=== PATIENT | male | born 1955 | race Caucasian/White ===

== ENCOUNTER 2016-12-16 05:56 | Day surgery (SDC) | payer MEDICARE ==
[2016-12-15 14:26] LABS: HEMATOCRIT 42.7 % (42.0-54.0); HEMOGLOBIN 14.9 g/dL (13.5-17.5); MCH 37.3 pg (26.0-34.0); MCHC 34.9 g/dL (31.0-37.0); MCV 106.8 fL (80.0-100.0); RDW 13.7 % (11.5-14.5); WBC 7.4 10x3/uL (4.8-10.8)
[2016-12-15 14:54] LABS: INR 0.89 (0.85-1.17); PROTIME 11.9 SECONDS (11.6-15.0)
[2016-12-15 14:55] LABS: ALKALINE PHOSPHATASE 163 U/L (46-116); ALT (SGPT) 74 U/L (10-68); APTT 29.4 SECONDS (22.8-39.4); BILIRUBIN - TOTAL 0.48 mg/dL (0.2-1.3); CALC OSMOLALITY 270 mosm/kg (275-300); CALCIUM 9.5 mg/dL (8.5-10.1); CARBON DIOXIDE 25.6 mmol/L (21.0-32.0); CHLORIDE - SERUM 98 mmol/L (98-107); GLUCOSE 79 mg/dL (74-106); POTASSIUM - SERUM 4.2 mmol/L (3.5-5.1); PROTEIN - SERUM 7.5 g/dL (6.4-8.2); SODIUM 136 mmol/L (136-145); UREA NITROGEN 13 mg/dL (7-18); eGFR NON AFRICAN AMERICAN 81 mL/min (90-120)
[~2016-12-16] VITALS: Ht 172.7 cm; Wt 81.6 kg
[~2016-12-16 05:56] MED LIST: ANUSOL-HC25 MG RC; BENADRYL50 MG PO; EFFEXOR XR150 MG PO; HCTZ25 MG PO; METOPROLOL TART50 MG PO; NIFEDIPINE ER30 MG PO; OMEPRAZOLE40 MG PO; OXYCONTIN10 MG PO; XANAX1 MG PO
[2016-12-16 09:54] VITALS: BP 118/74; Ht 172.7 cm; Wt 81.6 kg
[2016-12-16] MEDS ORDERED: HYDROCODONE-APA1 TAB PO (14:33)
--- NOTE | 2016-12-16 19:03 | NUR ---
1545 IV DC WITH CATHER TIP INTACT
--- NOTE | 2016-12-20 09:22 | OP ---
PATIENT NAME: ALEX FISHER MEDICAL RECORD: [id number] :59 [facility] AD[facility] DATE: SURGEON: JIMMIE GAMBLE MD DATE OF OPERATION: 12/16/2016 PREOPERATIVE DIAGNOSES: Impingement syndrome, biceps tendinitis, rotator cuff tear. POSTOPERATIVE DIAGNOSES: Impingement syndrome, biceps tendinitis, rotator cuff tear. PROCEDURES: 1. Arthroscopic rotator cuff repair. 2. Biceps tenodesis. 3. Arthroscopic subacromial decompression, acromioplasty and bursectomy. SURGEON: Jimmie Gamble MD ANESTHESIA: General. INTRAOPERATIVE COMPLICATIONS: None. SUMMARY OF PATHOLOGIC FINDINGS: The patient has severe biceps tendinitis and type 2 acromion a rotator cuff tear over the biceps tendon. OPERATIVE SUMMARY IN DETAIL: After obtaining the appropriate preoperative orthopedic surgery consent as well as anesthetic consultation, evaluation and clearance, the patient was brought to the operating room and placed on the operating room table in supine position. After general laryngeal mask airway was administered, the patient was placed in a right lateral decubitus position. All pressure points were well padded to include down leg peroneal nerve pad as well as axillary roll. The patient was held firmly to the operating table using the vacuum pack suction system. Left upper extremity and shoulder were then prepped and draped in routine sterile fashion. The arm was held in the Arthrex traction boom at 30 degrees of forward flexion, 30 degrees of abduction with 10 pounds of traction laterally. Arthroscopy was established in the glenohumeral joint from a posterior portal. Anterior portal was established in the anterior safe interval. Diagnostic arthroscopy revealed the above findings. The resector was utilized to debride the portions of the labral tearing and detach the biceps tendon that was held in place with a spinal needle. At this point, a small sensory lateral portal was created through which the biceps was taken out. A #2 FiberWire was stitched, then an 8 mm Bio-Tenodesis screw from Arthrex was utilized for proximal biotenodesis of the biceps. Having completed this, the small rotator cuff was repaired using the Bio-Tenodesis screw, FiberWire and a single extra FiberWire resulting in excellent reapproximation of the rotator cuff. Having completed this, under direct arthroscopic visualization, the undersurface of the acromion was denuded of all soft tissue elements using the Mcallen tissue ablation system. A 5-0 barrel bur was then used to perform acromioplasty at the level of acromioclavicular joint. Having completed this, arthroscopy portals and the small sensory lateral incision were closed in routine fashion. Sterile dressings were applied. The patient was awakened, taken to recovery room in stable condition. All final needle and sponge counts were correct. TRANSINT:[id number] Voice Confirmation ID: [id number] DOCUMENT ID: [id number] OPERATIVE REPORT [id number] ALEX FISHER MD, JIMMIE MAY at 0922 CC: [id number] DICTATION DATE: 12/16/16 1450 LACQUER SHADER: 12/17/16 0030 [facility] 12/16/16 [address] [place] [address]
== END 2016-12-16 16:10 | disposition home or self-care (01) ==
LOC: D.OPS 05:56 → D.PAN 10:15 → D.OPS 14:45
PROVIDERS: Anesthesiology
DX: M75.42 Impingement syndrome of left shoulder (principal); M75.112 Incomplete rotator cuff tear or rupture of left shoulder, not specified as traumatic; M75.22 Bicipital tendinitis, left shoulder

== ENCOUNTER 2018-07-27 18:43 | Inpatient (IN) | payer MEDICARE ==
[~2018-07-27] VITALS: Ht 172.7 cm; Wt 86.4 kg
[~2018-07-27 18:43] MED LIST changes: +HYDROCODONE-APA1 TAB PO
[2018-07-27] MEDS ORDERED: EFFEXOR XR75 MG PO (18:52)
[2018-07-27] MEDS ORDERED: HYDROCHLOROTH12.5 M1 PO (18:52)
--- NOTE | 2018-07-27 20:08 | NUR ---
PT AMBULATED TO RESTROOM INDEPENDENTLY.
[2018-07-27 20:39] LABS: BASOPHILS 0.7 % (0-2); EOSINOPHILS 3.7 % (0-7); HEMATOCRIT 37.3 % (42.0-54.0); HEMOGLOBIN 13.3 g/dL (13.5-17.5); IMMATURE GRANULOCYTES 0.2 % (0-5); LYMPHOCYTES 36.8 % (15-50); MCH 35.9 pg (26.0-34.0); MCHC 35.7 g/dL (31.0-37.0); MCV 100.8 fL (80.0-100.0); MEAN PLATELET VOLUME 9.7 fL (7.4-10.4); MONOCYTES 9.9 % (2-11); NEUTROPHILS 48.7 % (40-80); PLATELET COUNT 222 10x3/uL (130-400); RDW 13.1 % (11.5-14.5); WBC 10.5 10x3/uL (4.8-10.8)
[2018-07-27 20:49] LABS: ALBUMIN 3.3 g/dL (3.4-5.0); ALKALINE PHOSPHATASE 98 U/L (46-116); ALT (SGPT) 165 U/L (10-68); BILIRUBIN - TOTAL 0.14 mg/dL (0.2-1.3); CALC OSMOLALITY 264 mosm/kg (275-300); CARBON DIOXIDE 23.3 mmol/L (21.0-32.0); CHLORIDE - SERUM 95 mmol/L (98-107); GLUCOSE 73 mg/dL (74-106); POTASSIUM - SERUM 3.5 mmol/L (3.5-5.1); PROTEIN - SERUM 6.8 g/dL (6.4-8.2); SODIUM 132 mmol/L (136-145); UREA NITROGEN 14 mg/dL (7-18); eGFR NON AFRICAN AMERICAN 81 mL/min (90-120)
[2018-07-27 21:02] LABS: CKMB 1.5 U/L (0.0-3.6); CREATINE KINASE 105 UL (21-232); PRO BNP 496 pg/mL (0-125); TROPONIN-I < 0.017 ng/mL (0.000-0.060)
[2018-07-27 22:30] VITALS: BP 122/81
--- NOTE | 2018-07-27 22:43 | NUR ---
PT GIVEN SANDWICH TO EAT
--- NOTE | 2018-07-28 00:24 | NUR ---
PT GIVEN WARM BLANKETS. DENIES ANY FURTHER NEEDS, AT BEDSIDE. WILL CONTINUE TO MONITOR.
[2018-07-28 01:30] VITALS: BP 131/74
--- NOTE | 2018-07-28 01:46 | NUR ---
PT RESTING, RR EVEN AND UNLABORED, VS WNL, AT BEDSIDE. WILL CONTINUE TO MONITOR.
--- NOTE | 2018-07-28 02:30 | NUR ---
PT'S IV ANTIBIOTIC ZITHROMAX FINISHED.
[2018-07-28 03:00] VITALS: BP 139/74
--- NOTE | 2018-07-28 03:18 | NUR ---
PT GIVEN URINAL
--- NOTE | 2018-07-28 05:12 | NUR ---
PT RESTING RR EVEN AND UNLABORED, VS WNL, AT BEDSIDE. WILL CONTINUE TO MONITOR.
[2018-07-28 06:00] VITALS: BP 145/85
--- NOTE | 2018-07-28 07:00 | NUR ---
HAND-OFF REPORT RECEIVED FROM OFF GOING NURSE RIMA ALCANTARA. PT OBSERVED SITTING IN RECLINER AT BEDSIDE, IV INFUSING WITH NO SIGNS OF INFILTRATON. FAMILY MEMBER AT THE BEDSIDE. PT'S RESPIRATIONS EVEN AND UNLABORED. CALL LIGHT IN REACH. REGULAR DIET BREAKFAST TRAY GIVEN.
--- NOTE | 2018-07-28 08:06 | NUR ---
ALL MEDS AND NURSES NOTES MADE AFTER 0700 ADMINISTERED/DOCUMENTED BY THIS NURSE. CHARTED UNDER NURSE MARICRUZ RN IN ERROR.
[2018-07-28 10:00] VITALS: BP 138/79
--- NOTE | 2018-07-28 10:35 | NUR ---
IV BANANA BAG TEMPORARILLY STOPPED WHILE ORDERED IV ROCEPHIN INFUSING. WILL RESTART ONCE ROCEPHIN IS COMPLETE, 124ML REMAINING OF BANANA BAG.
--- NOTE | 2018-07-28 10:45 | NUR ---
PT SITTING IN RECLINER, RESPIRATIONS EVEN AND UNLABORED. IV INFUSING ORDERED WITH NO SIGNS OF INFILTRATION. O2 VIA NC IN PLACE. FAMILY AT THE BEDSIDE. PT DENIES ANY NEEDS. CALL LIGHT IN REACH. ICE WATER PROVIDED. WILL CONTINUE TO MONITOR.
--- NOTE | 2018-07-28 11:01 | NUR ---
ORDERED IV ROCEPHIN THAT WAS INITIATED AT 1027, COMPLETE AT 1101.
--- NOTE | 2018-07-28 12:10 | MORECARE ---
CASE MANAGEMENT DISCHARGE SUMMARY PATIENT: ALEX FISHER UNIT: [id number] ADM DATE: 07/28/18 AGE: 62 : 59 SEX: M ROOM/BED: D.2214 AUTHOR: ASHLEY,DOC PHYSICIAN: REFERRING PHYSICIAN: LITO HOUSE MD DATE OF SERVICE: 07/28/18 Discharge Plan Patient Name: ALEX FISHER Facility: [facility]:[place] : 1955 Planned Disposition: Anticipated Discharge Date: 07/31/18 Discharge Date: Expected LOS: 3 Initial Reviewer: [email or web address] Initial Review Date: 07/28/2018 Generated: 07/28/18 1:10 pm DCP- Discharge Planning Updated by [email or web address]: Mimi Candelario on 07/28/18 11:[address] Patient Name: ALEX FISHER Admission Status: ER Accout number: [id number] Admission Date: 07-28-2018 : 1955 Admission Diagnosis: Attending: LITO HOUSE Current LOS: 1 Anticipated DC Date: 07-31-2018 Planned Disposition: Primary Insurance: MEDICARE A & B Discharge Planning Comments: CM met with patient to complete initial dc planning assessment. CM educated patient on the CM role and verbal consent given by patient to complete assessment. Patient lives at home independently with his . At discharge patient plans to return home with his and feels this is a safe discharge. CM discussed availability of home health, rehab services, and medical equipment. Patient denied known discharge needs at this time. CM will continue to follow and will assist as needed with dc plans/needs. Title Abstractor: Mimi Candelario RN, [facility] DCPIA - Discharge Planning Initial Assessment Updated by [email or web address]: Mimi Candelario on 07/28/18 12:04 pm * Is the patient Alert and Oriented? Yes * How many steps to enter\exit or inside your home? none * PCP Dr. Bennett in [place] * Pharmacy [facility] in [place] or on [address] if called in at time of dc. * Preadmission Environment Home with Family * ADLs Independent * Equipment Bedside Commode Cane Oxygen * List name and contact numbers for known caregivers / representatives who currently or will assist patient after discharge: Radha Fisher - - [phone] Julienne Escobar - daughter - [phone] * Verbal permission to speak to the caregivers and representatives has been obtained from the patient. Yes * Community resources currently utilized None * Additional services required to return to the preadmission environment? No * Can the patient safely return to the preadmission environment? Yes * Has this patient been hospitalized within the prior 30 days at any hospital? No Patient Name: ALEX FISHER Page [phone] at 1210 All edits/amendments must be made on the electronic document DICTATION DATE: 07/28/18 1210 SEAFOOD CLERK: YOVANI 07/28/18 1210 RPT#: [id number] DC DATE: STATUS: ADM IN [address] [place] [address] END OF REPORT
--- NOTE | 2018-07-28 12:25 | NUR ---
TO ROOM 2214 FROM ER VIA WHEELCHAIR.ASSESSMENT PER FLOW SHEET. ORIENTATION TO ROOM.CALL LIGHT IN REACH.
[2018-07-28 12:50] VITALS: BP 151/93; BMI 28.9
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
--- NOTE | 2018-07-28 15:15 | NUR ---
URINE COLLECTED ORDERED,TO LAB
[2018-07-28 15:52] LABS: APPEARANCE CLEAR (CLEAR); BILIRUBIN NEGATIVE (NEGATIVE); COLOR YELLOW (YELLOW); GLUCOSE NEGATIVE (NEGATIVE); KETONE NEGATIVE (NEGATIVE); NITRITE NEGATIVE (NEGATIVE); PROTEIN NEGATIVE (NEGATIVE); SPECIFIC GRAVITY 1.015 (1.005-1.020); UROBILINOGEN NORMAL (NORMAL)
[2018-07-28 20:00] VITALS: BP 133/71
[2018-07-29] VITALS (7 sets, daily range): BP systolic 144–175; BP diastolic 76–102
[2018-07-29 06:27] LABS: BASOPHILS 0.2 % (0-2); EOSINOPHILS 0.7 % (0-7); HEMATOCRIT 34.2 % (42.0-54.0); HEMOGLOBIN 11.7 g/dL (13.5-17.5); IMMATURE GRANULOCYTES 0.2 % (0-5); LYMPHOCYTES 22.9 % (15-50); MCHC 34.2 g/dL (31.0-37.0); MCV 102.4 fL (80.0-100.0); MEAN PLATELET VOLUME 10.2 fL (7.4-10.4); MONOCYTES 10.3 % (2-11); NEUTROPHILS 65.7 % (40-80); PLATELET COUNT 198 10x3/uL (130-400); RBC 3.34 10x6/uL (4.20-6.10); RDW 13.6 % (11.5-14.5); WBC 10.5 10x3/uL (4.8-10.8)
--- NOTE | 2018-07-29 06:40 | NUR ---
PT IN BED RESTING QUIETLY WITH EYES CLOSED. VITAL SIGNS STABLE AND AFEBRILE. NO VISUAL CUES OF DISTRESS NOTED. WILL CONTINUE TO MONITOR.
[2018-07-29 06:43] LABS: CALC OSMOLALITY 279 mosm/kg (275-300); CALCIUM 7.9 mg/dL (8.5-10.1); CARBON DIOXIDE 27.7 mmol/L (21.0-32.0); CHLORIDE - SERUM 103 mmol/L (98-107); CREATININE - SERUM 0.8 mg/dL (0.6-1.3); GLUCOSE 95 mg/dL (74-106); POTASSIUM - SERUM 3.7 mmol/L (3.5-5.1); SODIUM 140 mmol/L (136-145); UREA NITROGEN 16 mg/dL (7-18); eGFR NON AFRICAN AMERICAN > 90 mL/min (90-120)
--- NOTE | 2018-07-29 08:00 | NUR ---
ASSESSMENT PER FLOW SHEET. PT IS WITHOUT DISTRESS,BUT HAS ANXIETY THIS AM. IS AT BEDSIDE.CALL LIGHT IN REACH
--- NOTE | 2018-07-29 11:48 | NUR ---
PT STATES NOT ALLRGIC TO MILK OR MILK PRODUCTS
[2018-07-30] VITALS: BP 153/91
[2018-07-30 04:00] VITALS: BP 151/81
[2018-07-30 05:54] LABS: BASOPHILS 0 % (0-2); EOSINOPHILS 0 % (0-7); HEMATOCRIT 35.5 % (42.0-54.0); HEMOGLOBIN 11.8 g/dL (13.5-17.5); IMMATURE GRANULOCYTES 0.3 % (0-5); LYMPHOCYTES 7.4 % (15-50); MCHC 33.2 g/dL (31.0-37.0); MEAN PLATELET VOLUME 10.5 fL (7.4-10.4); MONOCYTES 5.2 % (2-11); NEUTROPHILS 87.1 % (40-80); PLATELET COUNT 193 10x3/uL (130-400); RBC 3.37 10x6/uL (4.20-6.10); RDW 13.7 % (11.5-14.5)
[2018-07-30 06:08] LABS: CALCIUM 8.2 mg/dL (8.5-10.1); CARBON DIOXIDE 26.6 mmol/L (21.0-32.0); CHLORIDE - SERUM 100 mmol/L (98-107); CREATININE - SERUM 0.9 mg/dL (0.6-1.3); SODIUM 136 mmol/L (136-145); UREA NITROGEN 18 mg/dL (7-18); eGFR NON AFRICAN AMERICAN > 90 mL/min (90-120)
[2018-07-30 06:10] LABS: MCV 105.3 fL (80.0-100.0); WBC 6.9 10x3/uL (4.8-10.8)
[2018-07-30 06:21] LABS: CALC OSMOLALITY 277 mosm/kg (275-300); GLUCOSE 170 mg/dL (74-106); POTASSIUM - SERUM 4.3 mmol/L (3.5-5.1)
--- NOTE | 2018-07-30 08:00 | NUR ---
ASSESSMENT PER FLOW SHEET. PT IS WITHOUT DISTRESS.MONITOR FOR NEEDS
[2018-07-30 08:56] VITALS: BP 142/65
--- NOTE | 2018-07-30 13:40 | NUR ---
CALL TO FOR POSS SURG CONSULT FOR POSS CVL. UNABLE TO OBTAIN IV PLACEMENT
[2018-07-30 13:58] VITALS: Ht 172.7 cm; Wt 86.4 kg
[2018-07-30 20:00] VITALS: BP 164/69
--- NOTE | 2018-07-30 20:00 | NUR ---
ALERT CONFUSED AND AGITATED STATES WE HAVE LOCKED HIM UP AND HIS IS TRYING TO HAVE HIM COMMITED WANTING TO LEAVE. AT BEDSIDE. TREMORS NOTED TO HANDS STATES HE HAS NOT DONE THAT BEFORE. APPEARS TO BE GOING THROUGHT DT'S , LIBRIUM GIVEN ORDERED
--- NOTE | 2018-07-30 21:15 | NUR ---
DR CASTILLO NOTIFIED OF PT AGITATION AND CONFUSION NOW AMBULATING IN [place] WANTING TO GO OUTSIDE ORDERS RECIEVED
--- NOTE | 2018-07-30 23:00 | NUR ---
ATIVAN GIVEN ORDERED PT NOW MUCH CALMER AND MORE ORIENTIATED HANDS NO LONGER WITH TREMORS ALERT SITTING UP IN BED EATING SNACK REMAINING AT BEDSIDE
[2018-07-31 00:02] VITALS: BP 166/79
[2018-07-31 09:18] VITALS: BP 154/83
--- NOTE | 2018-07-31 09:35 | NUR ---
RN ASSESSMETN COMPLETE. PT LYING IN BED. NO SIGNS OF DISTRESS. DENIES NEEDS AT THIS TIME.
--- NOTE | 2018-07-31 11:13 | NUR ---
PT WAS ADVISED CAN HAVE BEER WITH EACH MEAL AND WAS TOLD THAT SPOUSE MAY BRING BEER FROM HOME, ADVISED PT PROTOCOL IS THAT WE CAN GET BEER FROM DIETARY BUT PT INSISTED ON OWN BEER ADVISED WE WILL KEEP IN [place] AND GIVE HIM ONE WITH EACH MEAL. BED IN LOW POSITION CL IN REACH FAMILY AT BEDSIDE, PT INQUIRED ON PAIN MEDS ADVISED GIVEN AT 810 AND NEXT DOSE DUE AT 12 AND ORDERED Q12. CONTINUE WITH PLAN OF CARE
--- NOTE | 2018-07-31 12:32 | NUR ---
PT REQUESTED PAIN MEDICATION, ADMINISTERED PRN PAIN MEDS PT CAN HAVE Q12
[2018-07-31 16:29] VITALS: BP 171/82
--- NOTE | 2018-07-31 16:58 | NUR ---
PT UP ADLIB WALKING AROUND NURSING STATION WITH SPOUSE, NO NEEDS VOICED AT THIS TIME, CONTINUE WITH PLAN OF CARE
[2018-07-31 20:00] VITALS: BP 164/84
--- NOTE | 2018-07-31 20:00 | NUR ---
ASSESSMENT PER FLOWSHEET. IV PATENT LEFT CHEST SUBCLAVIAN SALINE LOCKED. AT BEDSIDE. PATIENT UP0 AD MIKHAIL IN ROOM AND HALLWAY.
--- NOTE | 2018-07-31 21:07 | NUR ---
C/O COUGHING ROBITUSSIN 10 ML PO GIVEN FOR COUGH.
--- NOTE | 2018-08-01 00:19 | NUR ---
REQUESTING PAIN MED FOR BACK PAIN OXYCONTIN 10MG PO GIVEN FOR OAIN CONTROL.
--- NOTE | 2018-08-01 01:00 | NUR ---
REQUESTING COUGH MED. ROBITUSSIN 10 ML GIVEN PO FOR COUGH.
--- NOTE | 2018-08-01 01:09 | NUR ---
PATIENT VERY AGGITATED AND SCRATCHING ARMS ATIVAN 1MG IV GIVEN FOR AGGITATION/ANXIETY.
--- NOTE | 2018-08-01 03:59 | NUR ---
EYES CLOSED RESPIRATIONS WITH EASE AND UNLABORED. REFUSED UPDRAFT TX. O2 ON 2L/M PER NC
[2018-08-01 04:00] VITALS: BP 160/92
--- NOTE | 2018-08-01 07:30 | NUR ---
PT SPOUSE INQUIRED ON BARIUM SWALLOW, STATED SPEECH THERAPY STATED POSSIBLE SWALLOW STUDY OR XRAY. NO OTHER NEEDS VOICED, CONTINUE WITH PLAN OF CARE
--- NOTE | 2018-08-01 07:44 | NUR ---
PATIENT SITTING UP IN BED WITH NO COMPLAINTS OR SIGNS OF DISTRESS. THERAPEUTIC RECREATION SPECIALIST AT BEDSIDE DOING VS. IV INTACT. CALL LIGHT WITHIN REACH.
--- NOTE | 2018-08-01 07:57 | NUR ---
PT STATED THAT HIS PAIN MEDICATION Q12 IS NOT GOING TO WORK HIS PAIN IS TOO BAD TO ONLY TAKE EVERY 12 HOURS HE WAS TAKING NORCO Q4 AND THAT WORKS BETTER ADVISED PT TO SPEAK WITH DOCTOR IN REGARDS TO PAIN CONTROL CONCERNS THIS SUKUMAR
[2018-08-01 08:28] VITALS: BP 144/79
--- NOTE | 2018-08-01 11:30 | NUR ---
PT IS VERY ANXIOUS AND WANTED PAIN MEDICINE, ADVISED STILL HAD 30 MINUTES, PT WAS SHAKING AND PACING, ADMINISTERED PRN MEDICATION FOR PT ANXIETY AND GAVE PT A BEER THAT IS ORDERED NEEDED, SPOUSE AT BEDSIDE UNABLE TO CALM PT WELL, CL IN REACH WILL CONTINUE WITH PLAN OF CARE
[2018-08-01 11:55] VITALS: BP 157/90
[2018-08-01 16:58] VITALS: BP 157/85
[2018-08-01 20:00] VITALS: BP 167/78
--- NOTE | 2018-08-01 20:00 | NUR ---
PT SITTING UP IN BED, NO SIGNS OF DISTRESS. ALERT AND ORIENTED. PT HAD JUST GOT OUT OF SHOWER. CHANGED LEFT SUBCLAVIAN CL DRESSING. PT GIVEN COUGH SYRUP FOR COUGH AND SCHEDULED LIBRIUM. NO OTHER NEEDS OR COMPLAINTS AT THIS TIME. CL IN REACH, WILL CONTINUE TO MONITOR
[2018-08-02] VITALS: BP 145/76
--- NOTE | 2018-08-02 | NUR ---
PT STATES PAIN 02/17. GAVE OXY ORDERED. PT STARTING TO GET ANXIOUS, GAVE PRN ATIVAN. GAVE COUGH SYRUP FOR COUGH. LEFT SUBCLAVIAN CL INFUSING BANANA BAG @ 125. 02 2L/NC. NO OTHER NEEDS OR COMPLAINTS AT THIS TIME. CL IN REACH, WILL CONTINUE TO MONITOR
[2018-08-02 04:00] VITALS: BP 161/98
[2018-08-02] MEDS ORDERED: ZITHROMAX250 MG PO (07:36)
[2018-08-02] MEDS ORDERED: MUCINEX DM ER1 EAC1 PO (07:37)
[2018-08-02] MEDS ORDERED: IPRAT-ALBUT 0.5-3 ML UPD (07:41)
--- NOTE | 2018-08-02 08:44 | NUR ---
PT CONTIUES TO BE NONCOMPLIANT AND LEAVES THE FLOOR AFTER EDUCATION GIVEN NOT TO LEAVE AND SMOKE. AT BEDISDE. "OVERWHELMED". NO S/S OF ACUTE DISTRESS.
[2018-08-02 10:04] VITALS: BP 162/88
--- NOTE | 2018-08-02 10:12 | MORECARE ---
CASE MANAGEMENT DISCHARGE SUMMARY PATIENT: ALEX LIRA UNIT: [id number] ADM DATE: 07/28/18 AGE: 62 : 59 SEX: M ROOM/BED: D.2214 AUTHOR: FRANCIA RAMIREZ PHYSICIAN: REFERRING PHYSICIAN: LITO HOUSE MD DATE OF SERVICE: 08/02/18 Discharge Plan Patient Name: ALEX LIRA Facility: [facility]:[place] : 1955 Planned Disposition: Anticipated Discharge Date: 07/31/18 Discharge Date: Expected LOS: 3 Initial Reviewer: [email or web address] Initial Review Date: 07/28/2018 Generated: 08/02/18 11:12 am Comments DCP- Discharge Planning Updated by [email or web address]: Fior Bernstein on 08/02/18 9:[address] Patient discharging home today, has all dme (home o2, portable o2, nebulizer) does not want home health. to drive home. imm served and explained CM to follow and assist with DC planning as needed DCP- Discharge Planning Updated by [email or web address]: Mimi Candelario on 07/28/18 11:[address] Patient Name: ALEX LIRA Admission Status: ER Accout number: [id number] Admission Date: 07-28-2018 : 1955 Admission Diagnosis: Attending: LITO HOUSE Current LOS: 1 Anticipated DC Date: 07-31-2018 Planned Disposition: Primary Insurance: MEDICARE A & B Discharge Planning Comments: CM met with patient to complete initial dc planning assessment. CM educated patient on the CM role and verbal consent given by patient to complete assessment. Patient lives at home independently with his . At discharge patient plans to return home with his and feels this is a safe discharge. CM discussed availability of home health, rehab services, and medical equipment. Patient denied known discharge needs at this time. CM will continue to follow and will assist as needed with dc plans/needs. Diesel Crane Operator: Mimi Candelario RN, [facility] DCPIA - Discharge Planning Initial Assessment Updated by [email or web address]: Mimi Candelario on 07/28/18 12:04 pm * Is the patient Alert and Oriented? Yes * How many steps to enter\exit or inside your home? none * PCP Dr. Bennett in [place] * Pharmacy [facility] in [place] or on [address] if called in at time of dc. * Preadmission Environment Home with Family * ADLs Independent * Equipment Bedside Commode Cane Oxygen * List name and contact numbers for known caregivers / representatives who currently or will assist patient after discharge: Radha Lira - - [phone] Julienne Escobar - daughter - [phone] * Verbal permission to speak to the caregivers and representatives has been obtained from the patient. Yes * Community resources currently utilized None * Additional services required to return to the preadmission environment? No * Can the patient safely return to the preadmission environment? Yes * Has this patient been hospitalized within the prior 30 days at any hospital? No Coverage Notice Reviewer: [email or web address] Rafael Bernstein Notice Issued Date-Time: 08/02/2018 9:30 Notice Type: IM Discharge Notice Notice Delivered To: Patient Relationship to Patient: Spring Upholsterer Name: Delivery Method: HAND - Hand Delivered Ashley Days: Prior Verbal Notification: Recipient Understood Notice: Yes Recipient Signature: Yes Med Rec Note Co-signed by Attending: Coverage Notice Comment: Last DP export: 07/28/18 11:10 a Patient Name: ALEX LIRA Page [phone] at 1012 All edits/amendments must be made on the electronic document DICTATION DATE: 08/02/18 1012 SCAGLIOLA MECHANIC: YOVANI 08/02/18 1012 RPT#: [id number] DC DATE: STATUS: ADM IN [facility] [address] [place] [address] END OF REPORT
--- NOTE | 2018-08-02 10:54 | NUR ---
REMOVED CENTRAL LINE WITH TIP INTACT. NO REDDNESS OR SWELLING NOTED. 4X4S PLACED OVER. PRESSURE HELD FOR 5 MINUTES. NO S/S OF ACUTE DISTRESS. DC INSTRUCTIONS AND EDUCATION GIVEN TO PT AND . ALL BELONGINGS SENT WITH PT.
--- NOTE | 2018-08-02 11:14 | NUR ---
PT DRANK 1 BEER THIS AM WITH BREAKFAST. SENT PT HOME WITH 9 BEER. COUNTED WITH THE PT. PT ESCORTED OFF THE FLOOR VIA WC. AT SIDE. NO S/S OF ACUTE DISTRESS.
[2018-08-03 03:10] LABS: IMMUNOGLOBULIN E 1040 IU/mL (0-100)
--- NOTE | 2018-08-04 11:47 | MORECARE ---
CASE MANAGEMENT DISCHARGE SUMMARY PATIENT: ALEX LIRA UNIT: [id number] ADM DATE: 07/28/18 AGE: 62 : 59 SEX: M ROOM/BED: D.2214 AUTHOR: FRANCIA RAMIREZ PHYSICIAN: REFERRING PHYSICIAN: LITO HOUSE MD DATE OF SERVICE: 08/04/18 Discharge Plan Patient Name: ALEX LIRA Facility: [facility]:[place] : 1955 Planned Disposition: Anticipated Discharge Date: 07/31/18 Discharge Date: 08/02/2018 Expected LOS: 3 Initial Reviewer: [email or web address] Initial Review Date: 07/28/2018 Generated: 08/04/18 12:47 pm Comments DCP- Discharge Planning Updated by [email or web address]: Fior Bernstein on 08/02/18 9:[address] Patient discharging home today, has all dme (home o2, portable o2, nebulizer) does not want home health. to drive home. imm served and explained CM to follow and assist with DC planning as needed DCP- Discharge Planning Updated by [email or web address]: Mimi Candelario on 07/28/18 11:[address] Patient Name: ALEX LIRA Admission Status: ER Accout number: [id number] Admission Date: 07-28-2018 : 1955 Admission Diagnosis: Attending: LITO HOUSE Current LOS: 1 Anticipated DC Date: 07-31-2018 Planned Disposition: Primary Insurance: MEDICARE A & B Discharge Planning Comments: CM met with patient to complete initial dc planning assessment. CM educated patient on the CM role and verbal consent given by patient to complete assessment. Patient lives at home independently with his . At discharge patient plans to return home with his and feels this is a safe discharge. CM discussed availability of home health, rehab services, and medical equipment. Patient denied known discharge needs at this time. CM will continue to follow and will assist as needed with dc plans/needs. Lie Detector Operator: Mimi Candelario RN, [facility] DCPIA - Discharge Planning Initial Assessment Updated by [id number]: Mimi Candelario on 07/28/18 12:04 pm * Is the patient Alert and Oriented? Yes * How many steps to enter\exit or inside your home? none * PCP Dr. Bennett in [place] * Pharmacy [facility] in [place] or on [address] if called in at time of dc. * Preadmission Environment Home with Family * ADLs Independent * Equipment Bedside Commode Cane Oxygen * List name and contact numbers for known caregivers / representatives who currently or will assist patient after discharge: Radha Lira - - [phone] Julienne Escobar - daughter - [phone] * Verbal permission to speak to the caregivers and representatives has been obtained from the patient. Yes * Community resources currently utilized None * Additional services required to return to the preadmission environment? No * Can the patient safely return to the preadmission environment? Yes * Has this patient been hospitalized within the prior 30 days at any hospital? No Coverage Notice Reviewer: [email or web address] Rafael Bernstein Notice Issued Date-Time: 08/02/2018 9:30 Notice Type: IM Discharge Notice Notice Delivered To: Patient Relationship to Patient: Logging Crew Foreman Name: Delivery Method: HAND - Hand Delivered Ashley Days: Prior Verbal Notification: Recipient Understood Notice: Yes Recipient Signature: Yes Med Rec Note Co-signed by Attending: Coverage Notice Comment: Last DP export: 08/02/18 9:12 a Patient Name: ALEX LIRA Page 10458 at 1147 All edits/amendments must be made on the electronic document DICTATION DATE: 08/04/18 1147 WAREHOUSE SUPERVISOR 3RD SHIFT: YOVANI 08/04/18 1147 RPT#: [id number] DC DATE:08/02/18 STATUS: DIS IN [facility] [address] [place] [address] END OF REPORT
== END 2018-08-02 11:59 | disposition home or self-care (01) | DRG 193 ==
LOC: D.ER 18:43 → D.EDHOLD 07-28 00:19 → D.MS 07-28 00:19
PROVIDERS: Family Medicine; Internal Medicine Pulmonary Disease; ADMIT Family Medicine
DX: J18.9 Pneumonia, unspecified organism (principal); J96.01 Acute respiratory failure with hypoxia; J44.0 Chronic obstructive pulmonary disease with (acute) lower respiratory infection; J44.1 Chronic obstructive pulmonary disease with (acute) exacerbation; I48.0 Paroxysmal atrial fibrillation; K21.9 Gastro-esophageal reflux disease without esophagitis; I10 Essential (primary) hypertension; K70.30 Alcoholic cirrhosis of liver without ascites

== ENCOUNTER 2018-08-21 12:10 | Emergency (ER) | payer MEDICARE ==
[~2018-08-21] VITALS: Ht 172.7 cm; Wt 72.7 kg
[~2018-08-21 12:10] MED LIST changes: +EFFEXOR XR75 MG PO; +HYDROCHLOROTH12.5 M1 PO; +IPRAT-ALBUT 0.5-3 ML UPD; +MUCINEX DM ER1 EAC1 PO; +ZITHROMAX250 MG PO
[2018-08-21 12:33] VITALS: Ht 172.7 cm; Wt 72.7 kg
[2018-08-21 13:04] VITALS: BP 132/80
== END 2018-08-21 13:06 | disposition left against medical advice (07) ==
LOC: D.ER 12:10
DX: J44.9 Chronic obstructive pulmonary disease, unspecified (principal); F10.10 Alcohol abuse, uncomplicated

== ENCOUNTER 2018-08-21 13:54 | Emergency (ER) | payer MEDICARE ==
[~2018-08-21] VITALS: Ht 172.7 cm; Wt 86.4 kg
[2018-08-21 13:56] VITALS: BP 142/102; Ht 172.7 cm; Wt 86.4 kg
[2018-08-21 14:55] LABS: BASOPHILS 0.6 % (0-2); EOSINOPHILS 2.6 % (0-7); HEMATOCRIT 37.2 % (42.0-54.0); HEMOGLOBIN 14.1 g/dL (13.5-17.5); IMMATURE GRANULOCYTES 0.9 % (0-5); LYMPHOCYTES 37.4 % (15-50); MCH 35.3 pg (26.0-34.0); MCHC 37.9 g/dL (31.0-37.0); MEAN PLATELET VOLUME 10.1 fL (7.4-10.4); MONOCYTES 9.4 % (2-11); NEUTROPHILS 49.1 % (40-80); RDW 12.7 % (11.5-14.5); WBC 6.9 10x3/uL (4.8-10.8)
[2018-08-21 14:59] LABS: PLATELET COUNT 87 10x3/uL (130-400)
[2018-08-21 15:10] LABS: ALBUMIN 3.6 g/dL (3.4-5.0); ALKALINE PHOSPHATASE 97 U/L (46-116); ALT (SGPT) 37 U/L (10-68); BILIRUBIN - TOTAL 0.38 mg/dL (0.2-1.3); CARBON DIOXIDE 21.7 mmol/L (21.0-32.0); CKMB 2.2 U/L (0.0-3.6); CREATININE - SERUM 0.6 mg/dL (0.6-1.3); PROTEIN - SERUM 6.8 g/dL (6.4-8.2); UREA NITROGEN 6 mg/dL (7-18); eGFR NON AFRICAN AMERICAN > 90 mL/min (90-120)
[2018-08-21 15:25] LABS: CREATINE KINASE 151 UL (21-232)
[2018-08-21 15:27] LABS: CALC OSMOLALITY 243 mosm/kg (275-300); GLUCOSE 92 mg/dL (74-106); POTASSIUM - SERUM 3.1 mmol/L (3.5-5.1); SODIUM 122 mmol/L (136-145); TROPONIN-I < 0.017 ng/mL (0.000-0.060)
[2018-08-21 15:33] LABS: CHLORIDE - SERUM 82 mmol/L (98-107)
[2018-08-21 16:11] LABS: PLATELET ESTIMATE DECREASED
== END 2018-08-21 15:48 | disposition left against medical advice (07) ==
LOC: D.ER 13:54
PROVIDERS: Family Medicine
DX: J44.1 Chronic obstructive pulmonary disease with (acute) exacerbation (principal); F10.10 Alcohol abuse, uncomplicated; E87.1 Hypo-osmolality and hyponatremia; I10 Essential (primary) hypertension; F17.200 Nicotine dependence, unspecified, uncomplicated

== ENCOUNTER → 2018-10-25 10:58 | Outpatient (CLI) | payer MEDICARE ==
[2018-08-21 13:56] VITALS: BMI 28.9
[2018-10-25 12:53] LABS: BASOPHILS 0.1 % (0-2); EOSINOPHILS 0 % (0-7); HEMATOCRIT 36.8 % (42.0-54.0); HEMOGLOBIN 13.9 g/dL (13.5-17.5); IMMATURE GRANULOCYTES 0.4 % (0-5); LYMPHOCYTES 15.3 % (15-50); MCH 35.8 pg (26.0-34.0); MCHC 37.8 g/dL (31.0-37.0); MCV 94.8 fL (80.0-100.0); MONOCYTES 10.3 % (2-11); NEUTROPHILS 73.9 % (40-80); RBC 3.88 10x6/uL (4.20-6.10); RDW 12.7 % (11.5-14.5); WBC 7.8 10x3/uL (4.8-10.8)
[2018-10-25 12:54] LABS: PLATELET COUNT 190 10x3/uL (130-400)
[2018-10-25 13:36] LABS: ALBUMIN 3.8 g/dL (3.4-5.0); ALKALINE PHOSPHATASE 152 U/L (46-116); ALT (SGPT) 148 U/L (10-68); BILIRUBIN - TOTAL 0.25 mg/dL (0.2-1.3); CALC OSMOLALITY 259 mosm/kg (275-300); CALCIUM 9.3 mg/dL (8.5-10.1); CARBON DIOXIDE 24.3 mmol/L (21.0-32.0); CHLORIDE - SERUM 90 mmol/L (98-107); CHOL - HDL RATIO 2.6 ratio (2.3-4.9); CHOLESTEROL, TOTAL 167 mg/dL (0-200); CREATININE - SERUM 0.7 mg/dL (0.6-1.3); GLUCOSE 106 mg/dL (74-106); HDL CHOLESTEROL 64 mg/dL (32-96); LDL CHOLESTEROL 94 mg/dL (0-100); LDL-HDL RATIO 1.5 ratio (1.5-3.5); PROTEIN - SERUM 7.7 g/dL (6.4-8.2); SODIUM 130 mmol/L (136-145); THYROID STIMULATING HORMONE 0.61 uIU/mL (0.36-3.74); TRIGLYCERIDE 46 mg/dL (30-200); UREA NITROGEN 10 mg/dL (7-18); eGFR NON AFRICAN AMERICAN > 90 mL/min (90-120)
== END | disposition home or self-care (01) ==
LOC: D.LAB 10:58
PROVIDERS: ATTEND General Practice
DX: Z12.5 Encounter for screening for malignant neoplasm of prostate (principal)

== ENCOUNTER → 2018-11-23 09:22 | Outpatient (CLI) | payer MEDICARE ==
[2018-08-21 13:56] VITALS: BMI 28.9
== END | disposition home or self-care (01) ==
LOC: D.HCCARDIO 09:22
PROVIDERS: ATTEND Internal Medicine Interventional Cardiology
DX: I20.9 Angina pectoris, unspecified (principal)

== ENCOUNTER 2018-12-05 11:10 | Outpatient (CLI) | payer MEDICARE ==
--- NOTE | ~2018-12-05 | HEMODYNAMI ---
PATIENT:ALEX FISHER MEDICAL RECORD: [id number] : 59 LOCATION:[facility] ADMISSION DATE: 12/05/18 Generatedon:12/05/201813:28 Patient name: ALEX FISHER Patient #: [id number] SSN: D OB: 1955 Date of study: 12/05/2018 Page: Of Hemodynamic Procedure Report Patient Data Patient Demographics Procedure consent was obtained First Name: ALEX Gender: Male Last Name: PHILLIP : 1955 Middle Initial: A Age: 63 year(s) Patient #: [id number] Race: Unknown Additional ID: [id number] Contact details [address]: [address] [place] [address] State: [place] City: [place] Zip code: [address] Past Medical History Allergies Allergen Reaction Date Comments Reported Other allergy 12/05/2018 ambien, cinnamon, red dye Admission Admission Data Admission Date: 12/05/2018 Admission Time: 11:10 Admit Source: Other Procedure Procedure Types Cath Procedure Diagnostic Procedure LHC LHC w/Coronaries Procedure Description Procedure Date Procedure Date: 12/05/2018 Procedure Start Time: 13:10 Procedure End Time: 13:25 Procedure Staff Name Function Keaton Kim MD Performing Physician Leida Khan RT Monitor William Corbett RT Scrub Danay Pond RN Nurse Procedure Data Cath Procedure Fluoroscopy Diagnostic fluoroscopy Total fluoroscopy Time: 1 time: 1 min min Diagnostic fluoroscopy Total fluoroscopy dose: 237 dose: 237 mGy mGy Contrast Material Contrast Material Type Amount (ml) Isovue 370 54 Entry Location Entry Primary Successful Side Size Upsize Upsize Entry Closure Succes sful Closure Location (Fr) 1 (Fr) 2 (Fr) Remarks Device Remarks Femoral Right 5 Fr Exoseal artery Femoral Right 5 Fr vein Estimated blood loss: 5 ml Diagnostic catheters Device Type Used For End Catheter Placement MULTIPACK JL 4.0 5Fr Left Coronary catheter Angiography MULTIPACK 3DRC 5Fr Right Coronary catheter Angiography MULTIPACK Pigtail 5 Fr LV Angiography catheter Procedure Complications No complications Procedure Medications Medication Administration Route Dosage 0.9% NaCl I.V. 100 ml/hr Oxygen etCO2 Nasal cannula 2 l/min Lidocaine 2% added to field 20 Heparin Flush Bag added to field 2 bags (1000units/500ml NS) Versed I.V. 2 mg Fentanyl I.V. 50 mcg Hemodynamics Rest Heart Rate: 78 (bpm) Pressure Samples Time Site Value (mmHg) Purpose Heart Use Rate(bpm) 13:20 LV 111/9,11 Snapshot 88 13:20 AO 131/93(112) Pullback 87 Gradients Valve Time Site Site 2 Mean SEP/DFP Peak To Heart Use 1 (mmHg) (sec/min) Peak Rate (mmHg) (bpm) Aortic 13:20 LV AO 2 8 87 131/93(112) Calculations Valve P-P Mean Valve Index Valve Source Name Gradient Area Flow (cm2) Aortic 2 2 Snapshots Pre Cath Intra NCS Post Cath Vital Signs Time Heart Resp SPO2 etCO2 NIBP (mmHg) Rhythm Pain Sedation Rate (ipm) (%) (mmHg) Status Level (bpm) 13:00:03 83 15 97 29.8 177/98(121) NSR 0 (11) 10(A) , No pain 13:04:15 83 15 98 29.8 159/99(143) NSR 0 (11) 10(A) , No pain 13:08:30 79 19 98 32.7 155/96(127) NSR 0 (11) 10(A) , No pain 13:12:45 81 17 98 31.3 157/98(128) NSR 0 (11) 10(A) , No pain 13:17:02 81 19 98 29 144/95(111) NSR 0 (11) 10(A) , No pain 13:21:15 84 16 99 36.5 154/93(110) NSR 0 (11) 10(A) , No pain 13:25:21 83 15 99 32.7 141/97(121) NSR 0 (11) 10(A) , No pain Medications Time Medication Route Dose Verified Delivered Reason Notes Eff ectiveness by by 13:16:06 0.9% NaCl I.V. 100 Keaton Danay used for ml/hr JulioGaudencio Pond procedure MD ABARCA 13:16:12 Oxygen etCO2 2 Keaton Danay used for Nasal l/min JulioGaudencio Pond procedure cannula MD RN 13:16:17 Lidocaine 2% added 20ml Keaton Pugh for local to vial [facility] anesthetic field MD BECKMAN 13:16:22 Heparin Flush added 2 Keaton Pugh used for Bag to bags [facility] procedure (1000units/500ml field MD BECKMAN NS) 13:16:27 Versed I.V. 2 mg Keaton Jon for JulioGaudencio Pond sedation RN 13:16:33 Fentanyl I.V. 50 Keaton Harrisona for mcg [place] sedation check scaler Log Time Note 12:40:51 Danay Pond RN sent for patient. Start room use. 12:44:51 Informed consent obtained and on chart 12:44:55 Admit Source: Other 12:45:12 Diagnostic Cath status Elective 12:45:14 Time tracking: Regular hours (M-F 7:00 - 5:00) 12:45:18 Plan of Care:Hemodynamics will remain stable., Cardiac rhythm will remain stable., Comfort level will be maintained., Respiratory function will remain adequate., Patient/ family verbilizes understanding of procedure., Procedure tolerated without complication., Recovers from procedure without complications.. 12:45:37 H&P Date Dictated: 11/14/2018 Within 30 days and on chart., H&P Addendum completed by physician on day of procedure. (MUST COMPLETE FOR ALL OUTPATIENTS). 12:46:00 Patient allergic to Other allergyambien, cinnamon, red dye 12:53:02 Patient received from Pre/Post Procedure Room to CCL 1 Alert and oriented. Tansferred to table in Supine position. 12:53:03 Warm blankets applied, and jhony hugger turned on for patient comfort. 12:53:03 Correct patient and procedure confirmed by team. 12:53:04 ECG and BP/O2 sat monitors applied to patient. 12:53:05 Pre-procedure instructions explained to patient. 12:53:06 Pre-op teaching completed and patient verbalized understanding. 12:53:07 Family in waiting room. 12:53:08 Patient NPO since Midnight. 12:58:52 Vital chart was started 13:01:16 Baseline sample Acquired. 13:01:20 Rhythm: sinus rhythm 13:01:23 Full Disclosure recording started 13:01:26 Is the patient allergic to Iodine/contrast media? No. 13:01:27 Was the patient premedicated? No 13:01:33 Is patient on blood thinner?No 13:01:34 Patient diabetic? No. 13:01:43 Previous problem with sedation/anesthesia? No ? 13:01:45 Snore? Yes 13:01:46 Sleep apnea? Yes 13:01:47 Deviated septum? No 13:01:48 Opens mouth fully? Yes 13:01:49 Sticks out tongue? Yes 13:01:52 Airway obstruction? Yes copd 13:02:22 Dentures? Yes out 13:02:27 Pre procedure: right dorsailis pedis pulse 2+ Normal; easily identifiable; not easily obliterated 13:02:29 Pre procedure: left dorsailis pedis pulse 2+ Normal; easily identifiable; not easily obliterated 13:02:31 Patient pain scale 0/10 ?. 13:02:36 IV patent on arrival in left forearm with 0.9% NaCl at O. 13:02:38 Lab results completed and on chart. 13:02:42 Right groin area was prepped with chlora-prep and draped in sterile fashion 13:02:43 Alarms reviewed by R. N. 13:02:43 Sharps counted by scrub and verified by R.N. 13:02:45 Physician arrived 13:02:46 --------ALL STOP TIME OUT------ 13:02:51 Final Timeout: patient, procedure, and site verified with staff and physician. All members of the team are in agreement. 13:02:53 Right groin site verified by team. 13:02:56 Maximum allowable Isovue 300 dose 300ml. Physician notified. (300ml for normal creatinines. For patients with creatinine of 1.7 or higher multiply weight(kg) x 5 divided by creatinine.) 13:02:59 Fire Safety Assessment: A--An alcohol-based skin anteseptic being used preoperatively., C--Open oxygen or nitrous oxide is being used., D--An ESU, laser, or fiber-optic light is being used. 13:03:02 Physical assessment completed. ASA score P 2 - A patient with mild systemic disease as per Keaton Kim MD. 13:03:07 Sedation plan: IV Moderate Sedation Medication:Versed, Fentanyl 13:03:13 Use device set Femoral Dx 13:03:14 ACIST Syringe (12472) opened to sterile field. 13:03:14 Bag Decanter (2002S) opened to sterile field. 13:03:15 Medline Cath Pack ([id number]) opened to sterile field. 13:03:15 DIAGNOSTIC WIRE .035 260cm J wire (330931) opened to sterile field. 13:03:17 ACIST Hand Control (64715) opened to sterile field. 13:03:17 ACIST Manifold (65586) opened to sterile field. 13:03:18 DIAGNOSTIC Multipack 5Fr catheter set (CE8467) opened to sterile field. 13:03:18 Tegaderm 4 x 4 (1626W) opened to sterile field. 13:03:19 SHEATH 5FR Oxford (CVI417) opened to sterile field. 13:03:41 IV Extension Set opened to sterile field. 13:10:14 Procedure started. 13:10:18 Local anesthetic to right femoral artery with Lidocaine 2% by Keaton Kim MD.INITIAL ACCESS ONLY 13:10:24 Local anesthetic to right femoral vein with Lidocaine 2% by Keaton Kim MD.ADDITIONAL ACCESS 13:10:34 A 5 Fr sheath was inserted into the Right Femoral artery 13:10:42 A 5 Fr sheath was inserted into the Right Femoral vein 13:16:06 0.9% NaCl 100 ml/hr I.V. was administered by Danay Pond RN; used for procedure; 13:16:12 Oxygen 2 l/min etCO2 Nasal cannula was administered by Danay Pond RN; used for procedure; 13:16:17 Lidocaine 2% 20ml vial added to field was administered by Keaton Kim MD; for local anesthetic; 13:16:22 Heparin Flush Bag (1000units/500ml NS) 2 bags added to field was administered by Keaton Kim MD; used for procedure; 13:16:27 Versed 2 mg I.V. was administered by Danay Pond RN; for sedation; 13:16:33 Fentanyl 50 mcg I.V. was administered by Danay Pond RN; for sedation; 13:16:33 successful blood draw from venous sheath performed; staff unable to gain IV access before procedure 13:16:38 A MULTIPACK JL 4.0 5Fr catheter was advanced over the wire and used for Left Coronary Angiography. 13:17:08 LCA angiography performed. 13:17:10 Injector settings: Ml/sec: 3, Volume: 6, 13:17:25 Catheter removed. 13:17:31 A MULTIPACK 3DRC 5Fr catheter was advanced over the wire and used for Right Coronary Angiography. 13:18:37 RCA angiography performed. 13:18:40 Injector settings: Ml/sec: 3, Volume: 6, 13:18:57 Catheter removed. 13:19:05 A MULTIPACK Pigtail 5 Fr catheter was advanced over the wire and used for LV Angiography. 13:20:18 LV hemodynamics recorded. 13:20:19 LV gram done using ANGELES 13:20:24 Injector settings: Ml/sec: 5, Volume: 15, 13:21:07 EF : 55 % 13:21:10 Catheter removed. 13:21:13 EXOSEAL 5Fr (EX500) opened to sterile field. 13:22:20 Sheath removed intact; hemostasis achieved with Exoseal to the Right Femoral artery. 13:23:32 venous sheath secured with tegaderm 13:23:35 Procedure ended.(Physican Out) 13:24:25 Fluoroscopy time 01.00 minutes. 13:24:32 Fluoroscopy dose: 237 mGy 13:24:32 Flurop Dose total: 237 13:24:39 Contrast amount:Isovue 370 54ml. 13:24:41 Sharps counted by scrub and verified by R.N. 13:24:45 Insertion/operative site no bleeding no hematoma. 13:24:50 Post-op/insertion site Right Femoral artery dressed using a 4 x 4 and Tegaderm. 13:24:56 Post Procedure Pulses reassessed and unchanged 13:25:26 Estimated blood loss: 5 ml 13:25:28 Post procedure instruction explained to patient.Patient verbalizes understanding. 13:25:28 Patient needs reinforcement of post procedure teaching. 13:25:39 Procedure and supply charges have been captured, reviewed, submitted and are correct. 13:25:43 Procedure Complication : No complications 13:25:45 Vital chart was stopped 13:25:46 See physician's report for complete and final results. 13:25:49 Report given to Pre/Post Procedure Room. 13:25:51 Patient transfered to Pre/Post Procedure Room with Stretcher. 13:25:53 Procedure ended. 13:25:53 Full Disclosure recording stopped 13:26:00 End room use (Document Last) Device Usage Item Name Manufacture Quantity Catalog Hospital Part Current Minimal L ot# / Number Charge Number Stock Stock Serial# Code ACIST Acist 1 08409 684807 783394 964100 20 Syringe Medical (50051) Systems Inc Bag Microtek 1 2001S 445417 48026 307844 5 Decanter Medical Inc. () Medline Medline 1 [id number] 609041 38517 876310 5 Cath Pack ([id number]) DIAGNOSTIC [facility] 1 071488 235869 450270 779699 30 WIRE .035 260cm J wire (517648) ACIST Hand Acist 1 58162 301440 266720 701704 5 Control Medical (78096) Systems Inc ACIST Acist 1 63086 630399 410515 009641 5 Manifold Medical (63067) Systems Inc DIAGNOSTIC Cardinal 1 NL1632 882720 61655 140954 30 Multipack Health 5Fr catheter set (JV7055) Tegaderm 4 3M 1 1626W 470979 730235 703891 5 x 4 (1626W) SHEATH 5FR Terumo 1 PYA234 720387 953929 786772 5 Oxford (XVT059) IV Hospira 1 64185-21 780188 40957 903626 5 Extension Set MULTIPACK Cardinal 1 853611 5 JL 4.0 5Fr Health catheter MULTIPACK Cardinal 1 308117 5 3DRC 5Fr Health catheter MULTIPACK Cardinal 1 186612 5 Pigtail 5 Health Fr catheter EXOSEAL 5Fr Cardinal 1 EX500 112713 021383 834560 10 (EX500) Health Signature Audit [place] Stage Time Signature Unsigned Intra-Procedure 12/05/2018 Leida Khan 1:28:11 PM RT(R) Signatures Monitor : Leida Khan RT Signature : Date : Time : [facility] [address] [place] [address]
[2018-12-05] MEDS ORDERED: K-DUR20 MEQ PO (11:32)
[2018-12-05] MEDS ORDERED: LOPRESSOR25 MG PO (11:33)
[2018-12-05 11:38] VITALS: BP 175/92; BMI 28.1
[2018-12-05 13:26] LABS: BASOPHILS 0.5 % (0-2); EOSINOPHILS 0.7 % (0-7); HEMATOCRIT 38.8 % (42.0-54.0); HEMOGLOBIN 14.3 g/dL (13.5-17.5); IMMATURE GRANULOCYTES 0.1 % (0-5); LYMPHOCYTES 26.6 % (15-50); MCH 36.7 pg (26.0-34.0); MCHC 36.9 g/dL (31.0-37.0); MCV 99.5 fL (80.0-100.0); MEAN PLATELET VOLUME 9.2 fL (7.4-10.4); NEUTROPHILS 59.1 % (40-80); PLATELET COUNT 171 10x3/uL (130-400); RDW 13.6 % (11.5-14.5); WBC 7.3 10x3/uL (4.8-10.8)
--- NOTE | 2018-12-05 13:30 | NUR ---
RECIEVED TO ROOM VIA STRETCHER FROM MANAGEMENT ADVISOR WITH 5 FR EXOSEAL R/GROIN CDI NO BLEEDING OR HEMATOMA NOTED. PATIENT DENIED PAIN ON ARRIVAL. HR 78 BP 158/83 R/FOOT IS WARM TO TOUCH WITH PULSES PALPABLE
[2018-12-05 13:40] LABS: CALC OSMOLALITY 262 mosm/kg (275-300); CALCIUM 8.7 mg/dL (8.5-10.1); CARBON DIOXIDE 27.1 mmol/L (21.0-32.0); CHLORIDE - SERUM 93 mmol/L (98-107); CREATININE - SERUM 0.7 mg/dL (0.6-1.3); GLUCOSE 73 mg/dL (74-106); POTASSIUM - SERUM 3.4 mmol/L (3.5-5.1); SODIUM 133 mmol/L (136-145); UREA NITROGEN 7 mg/dL (7-18); eGFR NON AFRICAN AMERICAN > 90 mL/min (90-120)
--- NOTE | 2018-12-05 13:45 | NUR ---
5 FR EXOSEAL R/GROIN REMAINS CDI WITH VENOUS SHEATH IN PLACE. VSS AND CHEST PAIN IS DENIED. CALL LIGHT IS IN REACH WITH FAMILY AT BEDSIDE
--- NOTE | 2018-12-05 14:10 | NUR ---
VENOUS SHEATH PULLED BY PHILIP FROM MOTORS ASSEMBLER WITH PRESSURE HELD X 5 MINUTES. NO BLEEDING NOTED.
--- NOTE | 2018-12-05 14:45 | NUR ---
PATIENT VOIDS TO COLLECTION 800 CC CLEAR YELLOW URINE. 5 FR EXOSEAL R/GROIN REMAINS CDI
--- NOTE | 2018-12-05 14:58 | NUR ---
REPOSITIONED TO [facility] UP 30 FOR COMFORT. SANDWICH AND SODA TO BEDSIDE PATIENT DENIED PAIN OR NAUSEA R/GROIN REMAINS CDI
--- NOTE | 2018-12-05 15:25 | NUR ---
VERBAL AND WRITTEN DISCHARGE GONE OVER WITH PATIENT AND BOTH VERBALIZED UNDERSTANDING. PATIENT DENIED CHEST PAIN AND R/GROIN IS CDI PATIENT GETS UP TO DRESS FOR DISCHARGE HOME
--- NOTE | 2018-12-05 15:35 | NUR ---
PATIENT LEFT VIA WC TO PARKING FOR TRANSPORT HOME NO DISTRESS NOTED. 5 FR EXOSEAL R/GROIN IS CDI AND CHEST PAIN IS DENIED
--- NOTE | 2018-12-13 14:15 | OP ---
PATIENT NAME: ALEX FISHER MEDICAL RECORD: [id number] :59 LOCATION:D.CAT ADMISSION DATE: SURGEON: NANCY MENDEZ MD DATE OF OPERATION: 12/05/2018 PROCEDURES: Left heart catheterization, selective coronary angiography, right femoral artery approach. CATHETERS: A 5-Swazi sheath, 5/4 left and right Apple, 5/4 pig. Additionally, a venous catheter was placed secondary to poor venous access. FINDINGS: Left ventriculography in 30-degree ANGELES view: Normal wall motion and normal systolic function. CORONARY ANATOMY: LEFT MAIN: Left main is free of disease. LAD: Free of diagnosis in the diagonal system. CIRCUMFLEX: Free of diagnosis in the marginal system. RIGHT CORONARY ARTERY: Dominant artery, gives rise to PDA, free of disease. IMPRESSION: Normal LV systolic function. Normal coronary anatomy. TRANSINT:[id number] Voice Confirmation ID: [id number] DOCUMENT ID: [id number] NANCY MENDEZ MD at 1415 CC: [id number] DICTATION DATE: 12/05/18 1327 [place]ACLE ERP ARCHITECT: 12/05/18 1510 DEP CLI 12/05/18 [id number] [place] [address]
== END 2018-12-05 15:48 ==
LOC: D.CATH 11:10
PROVIDERS: ATTEND Internal Medicine Interventional Cardiology
DX: I20.9 Angina pectoris, unspecified (principal); E78.5 Hyperlipidemia, unspecified; I10 Essential (primary) hypertension; R55 Syncope and collapse; R09.89 Other specified symptoms and signs involving the circulatory and respiratory systems; F17.200 Nicotine dependence, unspecified, uncomplicated

== ENCOUNTER → 2019-03-23 09:54 | Outpatient (CLI) | payer MEDICARE ==
[~2019-03-23 09:54] MED LIST changes: +K-DUR20 MEQ PO; +LOPRESSOR25 MG PO
== END | disposition home or self-care (01) ==
LOC: D.RT 02-27 10:00
PROVIDERS: ATTEND Internal Medicine Pulmonary Disease
DX: J44.9 Chronic obstructive pulmonary disease, unspecified (principal)

== ENCOUNTER 2020-03-27 12:25 | Inpatient (IN) | payer MEDICARE ==
[~2020-03-27] VITALS: Ht 172.7 cm; Wt 73.6 kg
--- NOTE | ~2020-03-27 | OP ---
PATIENT NAME: ALEX FISHER MEDICAL RECORD: [id number] :[birth year] LOCATION:D.MS [id number] ADMISSION DATE:03/27/20 SURGEON: EUGENIO VASQUEZ MD DATE OF OPERATION: 03/28/2020 PREOPERATIVE DIAGNOSES: 1. Need for IV access. 2. Liver cirrhosis. 3. Chronic obstructive pulmonary disease. 4. Atrial fibrillation. 5. Hypertension. 6. Hypokalemia. 7. Tobacco dependence syndrome. POSTOPERATIVE DIAGNOSES: 1. Need for IV access. 2. Liver cirrhosis. 3. Chronic obstructive pulmonary disease. 4. Atrial fibrillation. 5. Hypertension. 6. Hypokalemia. 7. Tobacco dependence syndrome. PROCEDURE: Left subclavian vein triple-lumen central venous line placement. SURGEON: Eugenio Vasquez MD REPORT OF PROCEDURE: The patient's left chest was prepped and draped in sterile fashion. A 5 cc of 1% lidocaine with epinephrine was infused into the surrounding tissues. A needle was used to cannulate the left subclavian vein and a guidewire was advanced with ease. Over this wire, a dilator was placed followed by the triple lumen catheter. The catheter aspirated nonpulsatile dark blood and flushed easily in all 3 ports. This was sutured into place with 3-0 silk ties and dressed appropriately. COMPLICATIONS: None. CONDITION: Stable. ANESTHESIA: Local. BLOOD LOSS: Minimal. Procedure done at the bedside. TRANSINT:[id number] Voice Confirmation ID: [id number] DOCUMENT ID: [id number] OPERATIVE REPORT [id number] ALEX FISHER EUGENIO VASQUEZ MD CC: [id number] DICTATION DATE: 03/28/20 08 CUSTOMER SALES ADVISOR: 03/28/20 08 ADM IN [facility] [address] [place] [id number]
[2020-03-27] MEDS ORDERED: BUMETANIDE0.5 MG PO (13:04)
[2020-03-27] MEDS ORDERED: GABAPENTIN100 MG PO (13:05)
[2020-03-27] MEDS ORDERED: ATIVAN0.5 MG PO (13:05)
[2020-03-27] MEDS ORDERED: HYDROCODON-ACE1 EAC7 PO (13:06)
[2020-03-27] MEDS ORDERED: B-12 DOTS500 MCG PO (13:07)
[2020-03-27] MEDS ORDERED: ALBUTEROL SULF8.5 GM INH (13:10)
[2020-03-27 13:56] LABS: BILIRUBIN NEGATIVE (NEGATIVE); KETONE NEGATIVE (NEGATIVE); NITRITE NEGATIVE (NEGATIVE); UROBILINOGEN NORMAL mg/dL (< 2)
[2020-03-27 14:22] LABS: BASOPHILS 0.5 % (0-2); EOSINOPHILS 1.1 % (0-7); HEMATOCRIT 32.8 % (42.0-54.0); HEMOGLOBIN 11.3 g/dL (13.5-17.5); IMMATURE GRANULOCYTES 0.2 % (0-5); LYMPHOCYTES 28.8 % (15-50); MCH 36.9 pg (26.0-34.0); MCHC 34.5 g/dL (31.0-37.0); MCV 107.2 fL (80.0-100.0); NEUTROPHILS 56.4 % (40-80); PLATELET COUNT 143 10x3/uL (130-400); RBC 3.06 10x6/uL (4.20-6.10); RDW 12.5 % (11.5-14.5); WBC 6.3 10x3/uL (4.8-10.8)
[2020-03-27 14:34] LABS: APTT 36.4 SECONDS (22.8-39.4)
[2020-03-27 14:36] LABS: INR 0.98 (0.85-1.17); PROTIME 12.9 SECONDS (11.6-15.0)
[2020-03-27 14:46] LABS: ALBUMIN 2.4 g/dL (3.4-5.0); ALKALINE PHOSPHATASE 145 U/L (30-120); ALT (SGPT) 35 U/L (10-68); BILIRUBIN - TOTAL 0.21 mg/dL (0.2-1.3); CALCIUM 8.7 mg/dL (8.5-10.1); CARBON DIOXIDE 32.4 mmol/L (21.0-32.0); CHLORIDE - SERUM 95 mmol/L (98-107); CKMB 0.8 U/L (0.0-3.6); CREATINE KINASE 24 UL (21-232); CREATININE - SERUM 0.8 mg/dL (0.6-1.3); MAGNESIUM - SERUM 1.4 mg/dL (1.8-2.4); PRO BNP 890 pg/mL (0-125); PROTEIN - SERUM 6.2 g/dL (6.4-8.2); SODIUM 133 mmol/L (136-145); TROPONIN-I < 0.017 ng/mL (0.000-0.060); UREA NITROGEN 12 mg/dL (7-18); eGFR NON AFRICAN AMERICAN > 90 mL/min (90-120)
[2020-03-27 14:53] LABS: CALC OSMOLALITY 266 mosm/kg (275-300); GLUCOSE 112 mg/dL (74-106)
[2020-03-27 14:54] LABS: POTASSIUM - SERUM 2.8 mmol/L (3.5-5.1)
--- NOTE | 2020-03-27 20:30 | NUR ---
PT ARRIVED TO THE FLOOR. ALERT AND ORIENTED. NO SIGNS OF DISTRESS. BREATHIN EVEN AND UNLABORED. PT ON ROOM AIR. PT IV INFULTRATED. WILL ATEMPT RESITE. PT STATES NO PROBLEMS AT THIS TIME. BILATERAL EDEMA IN ARMS AND LEGS. AT BEDSIDE. FEET RED AND SWOLLEN. WILL CONTINUE PLAN 0F CARE. CALL LIGHT IN REACH. BED LOWERED AND LOCKED. BED RAILS UPX2.
--- NOTE | 2020-03-27 21:30 | NUR ---
ATTEMPTS X2 TO RESTART IV. PT TOLERATED WELL. STILL DID NOT GET AND IV. CALLED ICU FOR A NURSE TO COME AND TRY. WILL FALLOW UP.
[2020-03-28] VITALS: BP 124/84
--- NOTE | 2020-03-28 00:20 | NUR ---
ICU NURSE ATTEMPT IV X2. STILL NO IV. CALLED ER NURSE TO START IV. WILL FALLOW UP.
[2020-03-28 03:05] VITALS: Ht 172.7 cm; Wt 73.6 kg
--- NOTE | 2020-03-28 03:30 | NUR ---
ER NURSE AND DR. SCHNEIDER CAME TO ATTEMPT IV. NO IV STILL. DR. SCHNEIDER ADVISED FOR SURGERY CONSULT TO GET A LINE PLACED. WILL CALL DR. ALBARRAN TO GET ORDER.
[2020-03-28 04:00] VITALS: BP 117/72
--- NOTE | 2020-03-28 04:45 | NUR ---
DR VASQUEZ CAME AND PUT IN A LT SUBCLAVIAN CVL. PT TOLERATED WELL. CHEST X-RAY ORDERED TO CHECK PLACEMENT. WILL FALLOW UP.
[2020-03-28 06:01] LABS: BASOPHILS 0.7 % (0-2); EOSINOPHILS 0.9 % (0-7); HEMATOCRIT 32.5 % (42.0-54.0); HEMOGLOBIN 10.8 g/dL (13.5-17.5); IMMATURE GRANULOCYTES 0.2 % (0-5); LYMPHOCYTES 28.1 % (15-50); MCHC 33.2 g/dL (31.0-37.0); MCV 108.3 fL (80.0-100.0); MONOCYTES 13.3 % (2-11); NEUTROPHILS 56.8 % (40-80); PLATELET COUNT 142 10x3/uL (130-400); RDW 12.8 % (11.5-14.5); WBC 5.9 10x3/uL (4.8-10.8)
[2020-03-28 06:31] LABS: ALBUMIN 2.3 g/dL (3.4-5.0); ALKALINE PHOSPHATASE 101 U/L (30-120); ALT (SGPT) 39 U/L (10-68); CALCIUM 8.5 mg/dL (8.5-10.1); CARBON DIOXIDE 32.9 mmol/L (21.0-32.0); CHLORIDE - SERUM 103 mmol/L (98-107); CKMB 0.6 U/L (0.0-3.6); CREATINE KINASE 22 UL (21-232); CREATININE - SERUM 0.7 mg/dL (0.6-1.3); GLUCOSE 124 mg/dL (74-106); PROTEIN - SERUM 5.8 g/dL (6.4-8.2); SODIUM 141 mmol/L (136-145); eGFR NON AFRICAN AMERICAN > 90 mL/min (90-120)
[2020-03-28 06:32] LABS: CALC OSMOLALITY 279 mosm/kg (275-300); TROPONIN-I < 0.017 ng/mL (0.000-0.060); UREA NITROGEN 7 mg/dL (7-18)
--- NOTE | 2020-03-28 07:15 | NUR ---
RECEIVED BEDSIDE REPORT. PT LAYING IN BED A&O X4. DENIES PAIN. LEFT SUBCLAV CVL, PATENT AND INFUSING, NO REDNESS OR SWELLING. ABD DISTENDED, ACTIVE BOWEL SOUNDS X 4 QUAD. PT HAS BRUISES ON BILAT UPPER AND LOWER EXTREMITIES. 3+ PITTING EDEMA ON BILAT LOWER LEGS. SPOUSE C/O THE NURSES AND STAFF ATTEMPTING TO MANY IV STARTS AND BLOOD DRAWS AFTER SHE TOLD THEM THAT HE WAS HAVING A PORT PLACED. EDUCATED SPOUSE ON PT HAVING A LOW POTASSIUM AND HEART RYTHUM PROBLEMS AND THE NEED FOR QUICK IV ACCESS. SPOUSE VERBALIZED UNDERSTANDING BUT IS STILL VERY UPSET AND WOULD LIKE TO SPEAK WITH MD. EDUCATED PT AND SPOUSE THAT MD WOULD BE DOING ROUNDS TODAY AND WILL BE ABLE TO EXPLAIN SITUATION. TELEMETRY IN PLACE, 106 SIN[address] TACH. EDUCATED PT ON CL AND NEEDS, VERBALIZED UNDERSTANDING. BED LOW, CL IN REACH. WILL CONTINUE TO MONITOR.
[2020-03-28 08:49] VITALS: BP 113/69
--- NOTE | 2020-03-28 10:00 | NUR ---
FLUSHED LEFT SUBCLAV CVL, DISCARDED 10ML BLOOD, CALIN 15ML FOR LABS, FLUSHED 10ML, PT TOLERATED WELL. SENT BLOOD TO LAB.
--- NOTE | 2020-03-28 11:15 | NUR ---
PT C/O PAIN 02/17, PROVIDED PAIN MEDS PER ORDER. DENIES FURTHER NEEDS. BED LOW, CL IN REACH.
[2020-03-28 11:37] LABS: PHOSPHOROUS 2.7 mg/dL (2.5-4.9)
[2020-03-28 11:41] LABS: MAGNESIUM - SERUM 3.2 mg/dL (1.8-2.4); POTASSIUM - SERUM 3.8 mmol/L (3.5-5.1)
[2020-03-28 12:39] VITALS: BP 133/87
--- NOTE | 2020-03-28 14:04 | NUR ---
PT SPOUSE ASKED WHEN MD WOULD MAKE ROUNDS. EDUCATED SPOUSE ON THE TIMEFRAME, WILL ATTEMPT TO CONTACT AVIS BECKMAN. BED CORINA, CL IN REACH.
--- NOTE | 2020-03-28 14:44 | MORECARE ---
CASE MANAGEMENT DISCHARGE SUMMARY PATIENT: ALEX FISHER UNIT: [id number] ADM DATE: 03/27/20 AGE: 64 : 59 SEX: M ROOM/BED: D.2228 AUTHOR: FRANCIA RAMIREZ PHYSICIAN: REFERRING PHYSICIAN: CLIFTON ALBARRAN MD DATE OF SERVICE: 03/28/20 Discharge Plan Patient Name: ALEX FISHER Facility: [facility]:[place] : 1955 Planned Disposition: Anticipated Discharge Date: Discharge Date: Expected LOS: Initial Reviewer: [email or web address] Initial Review Date: 03/28/2020 Generated: 03/28/20 3:43 pm Patient Name: ALEX FISHER Page 99020 at 1444 All edits/amendments must be made on the electronic document DICTATION DATE: 03/28/20 144 ACCOUNT SERVICES ASSOCIATE: YOVANI 03/28/20 1443 RPT#: [id number] DC DATE: STATUS: ADM IN [facility] [address] [place] [address] END OF REPORT
[2020-03-28 15:58] LABS: MAGNESIUM - SERUM 3.4 mg/dL (1.8-2.4); POTASSIUM - SERUM 3.6 mmol/L (3.5-5.1)
[2020-03-28 16:53] VITALS: BP 141/88
[2020-03-28 20:00] VITALS: BP 129/85
[2020-03-29 04:00] VITALS: BP 115/70
[2020-03-29 06:37] LABS: BASOPHILS 0.5 % (0-2); EOSINOPHILS 1.1 % (0-7); HEMATOCRIT 32.2 % (42.0-54.0); HEMOGLOBIN 10.4 g/dL (13.5-17.5); IMMATURE GRANULOCYTES 0.2 % (0-5); MCHC 32.3 g/dL (31.0-37.0); MEAN PLATELET VOLUME 11.3 fL (7.4-10.4); NEUTROPHILS 61.2 % (40-80); PLATELET COUNT 150 10x3/uL (130-400); RBC 2.89 10x6/uL (4.20-6.10); RDW 13.3 % (11.5-14.5); WBC 6.6 10x3/uL (4.8-10.8)
[2020-03-29 06:41] LABS: CALCIUM 7.6 mg/dL (8.5-10.1); CARBON DIOXIDE 26.8 mmol/L (21.0-32.0); CHLORIDE - SERUM 109 mmol/L (98-107); GLUCOSE 123 mg/dL (74-106); POTASSIUM - SERUM 3.6 mmol/L (3.5-5.1); SODIUM 140 mmol/L (136-145)
[2020-03-29 06:42] LABS: CALC OSMOLALITY 276 mosm/kg (275-300); CREATININE - SERUM 0.5 mg/dL (0.6-1.3); UREA NITROGEN 5 mg/dL (7-18); eGFR NON AFRICAN AMERICAN > 90 mL/min (90-120)
[2020-03-29 06:43] LABS: MCV 111.4 fL (80.0-100.0)
--- NOTE | 2020-03-29 07:15 | NUR ---
RECEIVED BEDSIDE REPORT. PT SITTING UP IN BED A&O X4. DENIES PAIN. SPOUSE AT BEDSIDE. LEFT SUBCLAV CVL, PATENT AND INFUSING, NO REDNESS OR SWELLING. BRUISES, SCABS AND DRY CRACKING ON BILAT UPPER EXTREMITIES. SKIN TEAR ON LEFT FOREARM. GENERALIZED EDEMA ON BILAT LOWER EXTREMITIES. RIGHT PINKY TOE AMPUTATION. TELEMETRY IN PLACE, [address] PT ABLE TO AMBULATE WITH WALKER. EDUCATED PT ON CL AND NEEDS, VERBALIZED UNDERSTANDING. BED LOW, CL IN REACH. WILL CONTINUE TO MONITOR.
[2020-03-29 07:44] VITALS: BP 111/74
--- NOTE | 2020-03-29 08:00 | NUR ---
ASKED SHERRI PLANT FLOOR AUTOMATION MANAGER ABOUT D/C FLUIDS, K+ IS WNL, MAG IS HIGH. SHERRI VERBALIZED D/C ORDER. S/L PT LEFT SUBCLAV CVL AND DISCARDED FLUIDS. BED LOW, CL IN REACH.
--- NOTE | 2020-03-29 10:45 | NUR ---
PT C/O 02/17 PAIN, PROVIDED PAIN MEDS PER ORDER. BED LOW, CL IN REACH.
--- NOTE | 2020-03-29 11:30 | NUR ---
CHANGED PT GOWN, FULL LINEN CHANGE. BED LOW, CL IN REACH.
[2020-03-29 15:56] VITALS: BP 120/67
--- NOTE | 2020-03-29 20:25 | NUR ---
RESTING IN BED. ALERT AND ORIENTED. RATES PAIN IN BACK 8. ABD IS DISTENDED AND FIRM. TELEMETRY SHOWS SR WITH RATE OF 75. EDEMA NOTED TO BLE. BRUISES NOTED TO BUE. NONPROD COUGH NOTED. LT TLSC IS SALINE LOCKED. AMB WITH WALKER. NO DISTRESS. CL IN REACH.
[2020-03-29 20:32] VITALS: BP 110/74
--- NOTE | 2020-03-29 21:50 | NUR ---
MEDICATED WITH NORCO FOR C/O BACK PAIN. CL IN REACH.
[2020-03-30 00:31] VITALS: BP 129/79
--- NOTE | 2020-03-30 00:50 | NUR ---
MEDICATED WITH ATIVAN PER REQUEST FOR ANXIETY. CL IN REACH
--- NOTE | 2020-03-30 04:00 | NUR ---
MEDICATED WITH NORCO FOR C/O PAIN IN BACK. CL IN REACH.
[2020-03-30 05:57] VITALS: BP 126/80
--- NOTE | 2020-03-30 07:15 | NUR ---
RESTING IN BED WITH EYES CLOSED, NO CURRENT S/S OF DISTRESS. BREATHING EVEN AND NONLABORED RESTING COMFORTABLY. IV LOCATED TO LEFT SUBCLAVIAN CURRENTLY SL. WILL CONT TO MONITOR.
[2020-03-30 08:16] VITALS: BP 128/78
--- NOTE | 2020-03-30 09:49 | MORECARE ---
CASE MANAGEMENT DISCHARGE SUMMARY PATIENT: ALEX LIRA A UNIT: [id number] ADM DATE: 03/27/20 AGE: 64 : 59 SEX: M ROOM/BED: D.2228 AUTHOR: FRANCIA RAMIREZ PHYSICIAN: REFERRING PHYSICIAN: CLIFTON ALBARRAN MD DATE OF SERVICE: 03/30/20 Discharge Plan Patient Name: ALEX LIRA Facility: [facility]:[place] : 1955 Planned Disposition: Home Health Service Anticipated Discharge Date: 03/30/20 Discharge Date: Expected LOS: 3 Initial Reviewer: [email or web address] Initial Review Date: 03/28/2020 Generated: 03/30/20 10:48 am DCPIA - Discharge Planning Initial Assessment Updated by [email or web address]: Pedro Forde on 03/30/20 9:47 am * Is the patient Alert and Oriented? Yes * How many steps to enter\exit or inside your home? 0/0 * PCP Dr. Yonas Hassan, [place] * Pharmacy [facility] in [place] * Preadmission Environment Home with Family * ADLs Independent * Equipment Cane Walker * Other Equipment n/a * List name and contact numbers for known caregivers / representatives who currently or will assist patient after discharge: Pita Lira - [phone] * Verbal permission to speak to the caregivers and representatives has been obtained from the patient. Yes * Community resources currently utilized Home Health * Please name any agencies selected above. [facility] * Additional services required to return to the preadmission environment? Yes * Can the patient safely return to the preadmission environment? Yes * Has this patient been hospitalized within the prior 30 days at any hospital? No Last DP export: 03/28/20 1:44 p Patient Name: ALEX LIRA Page [id number] at 0949 All edits/amendments must be made on the electronic document DICTATION DATE: 03/30/20947 MACHINE HEEL SEAT LASTER: YOVANI 03/30/20947 RPT#: [id number] DC DATE: STATUS: ADM IN [facility] [address] [place] [address] END OF REPORT
--- NOTE | 2020-03-30 10:20 | NUR ---
DC PAPERS SIGNED, CENTRAL LINE REMOVED, LITTLE TO NO BLEEDING, PRESSURE DRESSING APPLIED , PT INSTRUCTED TO LAY STILL FOR 30 MINUTES. AT THE BEDSIDE. WILL CONT TO MONITOR.
--- NOTE | 2020-03-30 10:43 | MORECARE ---
CASE MANAGEMENT DISCHARGE SUMMARY PATIENT: ALEX LIRA UNIT: [id number] ADM DATE: 03/27/20 AGE: 64 : 59 SEX: M ROOM/BED: D.2228 AUTHOR: ASHLEYDOC PHYSICIAN: REFERRING PHYSICIAN: CLIFTON ALBARRAN MD DATE OF SERVICE: 03/30/20 Discharge Plan Patient Name: ALEX LIRA Facility: [facility]:[place] : 1955 Planned Disposition: Home Health Service Anticipated Discharge Date: 03/30/20 Discharge Date: Expected LOS: 3 Initial Reviewer: [email or web address] Initial Review Date: 03/28/2020 Generated: 03/30/20 11:43 am Comments DCP- Discharge Planning Updated by [email or web address]: Pedro Forde on 03/30/20 9:[address] Patient Name: ALEX LIRA Admission Status: ER Accout number: [id number] Admission Date: 03-27-2020 : 1955 Admission Diagnosis:HYPOKALEMIA Attending: CLIFTON ALBARRAN Current LOS: 3 Anticipated DC Date: 03-30-2020 Planned Disposition: Home Health Service Primary Insurance: MEDICARE A & B Discharge Planning Comments: CM met with patient to complete initial dc planning assessment. CM educated patient on the CM role and verbal consent given to complete assessment. CM verified patient's address, phone number, and emergency contact phone numbers. Patient lives at home with his spouse, Pita Lira. At discharge patient plans to return home with Home Health, [facility] and feels this is a safe discharge. Patient stated that he has 0 steps to navigate to enter his home and he can do it safely. Patient states that he is independent but uses a walker and cane to get around his home. Patient states that he fills his medications at [facility] in [place], [place]. CM discussed availability of home health, rehab services, and medical equipment. Patient states desires HH with [facility] in [facility] ([phone]). Clinicals faxed to [facility] at [phone]. Transportation provider at discharge will be his , Pita. CM will continue to follow and will assist as needed with dc plans/needs. Remelt Operator: Pedro Forde DCPIA - Discharge Planning Initial Assessment Updated by [email or web address]: Pedro Forde on 03/30/20 9:47 am * Is the patient Alert and Oriented? Yes * How many steps to enter\exit or inside your home? 0/0 * PCP Dr. Yonas Hassan, [place] * Pharmacy [facility] in [place] * Preadmission Environment Home with Family * ADLs Independent * Equipment Cane Walker * Other Equipment n/a * List name and contact numbers for known caregivers / representatives who currently or will assist patient after discharge: Pita Lira - [phone] * Verbal permission to speak to the caregivers and representatives has been obtained from the patient. Yes * Community resources currently utilized Home Health * Please name any agencies selected above. [facility] * Additional services required to return to the preadmission environment? Yes * Can the patient safely return to the preadmission environment? Yes * Has this patient been hospitalized within the prior 30 days at any hospital? No External Providers External Provider: [facility] Next Contact Date: Service Request Date: Service Type: Resolution: Reviewer: Comments: Coverage Notice Reviewer: [id number] - Pedro Forde Notice Issued Date-Time: 03/30/2020 10:15 Notice Type: IM Discharge Notice Notice Delivered To: Patient Relationship to Patient: Self Manager Ct Name: Delivery Method: HAND - Hand Delivered Ashley Days: Prior Verbal Notification: Recipient Understood Notice: Yes Recipient Signature: Yes Med Rec Note Co-signed by Attending: Coverage Notice Comment: DC IMM delivered, explained, signed by the patient, and placed in chart. Signed form also left with the patient. Last DP export: 03/30/20 8:49 a Patient Name: ALEX LIRA Page [phone] at 1043 All edits/amendments must be made on the electronic document DICTATION DATE: 03/30/20 1043 ESTIMATOR PAPERBOARD BOXES: YOVANI 03/30/20 1043 RPT#: [id number] DC DATE: STATUS: ADM IN [facility] [address] [place] [address] END OF REPORT
--- NOTE | 2020-03-31 09:09 | MORECARE ---
CASE MANAGEMENT DISCHARGE SUMMARY PATIENT: ALEX LIRA UNIT: [id number] ADM DATE: 03/27/20 AGE: 64 : 59 SEX: M ROOM/BED: D.2228 AUTHOR: ASHLEYDOC PHYSICIAN: REFERRING PHYSICIAN: CLIFTON ALBARRAN MD DATE OF SERVICE: 03/31/20 Discharge Plan Patient Name: ALEX LIRA Facility: [facility]:[place] : 1955 Planned Disposition: Home Health Service Anticipated Discharge Date: 03/30/20 Discharge Date: 03/30/2020 Expected LOS: 3 Initial Reviewer: [email or web address] Initial Review Date: 03/28/2020 Generated: 03/31/20 10:08 am Comments DCP- Discharge Planning Updated by [email or web address]: Pedro Forde on 03/30/20 9:[address] Patient Name: ALEX LIRA Admission Status: ER Accout number: [id number] Admission Date: 03-27-2020 : 1955 Admission Diagnosis:HYPOKALEMIA Attending: CLIFTON ALBARRAN Current LOS: 3 Anticipated DC Date: 03-30-2020 Planned Disposition: Home Health Service Primary Insurance: MEDICARE A & B Discharge Planning Comments: CM met with patient to complete initial dc planning assessment. CM educated patient on the CM role and verbal consent given to complete assessment. CM verified patient's address, phone number, and emergency contact phone numbers. Patient lives at home with his spouse, Pita Lira. At discharge patient plans to return home with Home Health, [facility] and feels this is a safe discharge. Patient stated that he has 0 steps to navigate to enter his home and he can do it safely. Patient states that he is independent but uses a walker and cane to get around his home. Patient states that he fills his medications at [facility] in [place], [place]. CM discussed availability of home health, rehab services, and medical equipment. Patient states desires HH with [facility] ([phone]). Clinicals faxed to [facility] at [phone]. Transportation provider at discharge will be his , Pita. CM will continue to follow and will assist as needed with dc plans/needs. Spotter: Pedro Forde DCPIA - Discharge Planning Initial Assessment Updated by [email or web address]: Pedor Forde on 03/30/20 9:47 am * Is the patient Alert and Oriented? Yes * How many steps to enter\exit or inside your home? 0/0 * PCP Dr. Yonas Hassan, [place] * Pharmacy [facility] in [place] * Preadmission Environment Home with Family * ADLs Independent * Equipment Cane Walker * Other Equipment n/a * List name and contact numbers for known caregivers / representatives who currently or will assist patient after discharge: Pita Lira [phone] * Verbal permission to speak to the caregivers and representatives has been obtained from the patient. Yes * Community resources currently utilized Home Health * Please name any agencies selected above. [facility] * Additional services required to return to the preadmission environment? Yes * Can the patient safely return to the preadmission environment? Yes * Has this patient been hospitalized within the prior 30 days at any hospital? No Coverage Notice Reviewer: [email or web address] - Pedro Forde Notice Issued Date-Time: 03/30/2020 10:15 Notice Type: IM Discharge Notice Notice Delivered To: Patient Relationship to Patient: Self Neonatal Doctor Name: Delivery Method: HAND - Hand Delivered Ashley Days: Prior Verbal Notification: Recipient Understood Notice: Yes Recipient Signature: Yes Med Rec Note Co-signed by Attending: Coverage Notice Comment: DC IMM delivered, explained, signed by the patient, and placed in chart. Signed form also left with the patient. Last DP export: 03/30/20 9:43 a Patient Name: ALEX LIRA Page 70710 at 0909 All edits/amendments must be made on the electronic document DICTATION DATE: 03/31/20908 SLOT MACHINE KEY PERSON: YOVANI 03/31/20908 RPT#: [id number] DC DATE:03/30/20 STATUS: DIS IN [facility] [address] [place] [address] END OF REPORT
== END 2020-03-30 11:17 | disposition home health service (06) | DRG 641 ==
LOC: D.ER 12:25 → D.MS 15:44
PROVIDERS: Family Medicine; ADMIT Legal Medicine; ATTEND Legal Medicine
PROC: 05H633Z Insertion of Infusion Device into Left Subclavian Vein, Percutaneous Approach (ICD-10-PCS; principal; 2020-03-27)
DX: E87.6 Hypokalemia (principal); I47.2 Ventricular tachycardia; K74.60 Unspecified cirrhosis of liver; J44.9 Chronic obstructive pulmonary disease, unspecified; I10 Essential (primary) hypertension; F17.200 Nicotine dependence, unspecified, uncomplicated; R60.0 Localized edema; I48.0 Paroxysmal atrial fibrillation

== ENCOUNTER → 2020-10-23 18:32 | Outpatient (CLI) | payer MEDICARE ==
[2020-03-28 03:05] VITALS: BMI 24.6
[~2020-10-23 18:32] MED LIST changes: +ALBUTEROL SULF8.5 GM INH; +ATIVAN0.5 MG PO; +B-12 DOTS500 MCG PO; +BUMETANIDE0.5 MG PO; +GABAPENTIN100 MG PO; +HYDROCODON-ACE1 EAC7 PO
== END | disposition home or self-care (01) ==
LOC: D.LABREF 18:32
PROVIDERS: ATTEND Nurse Practitioner Acute Care
DX: I50.9 Heart failure, unspecified (principal)

== ENCOUNTER → 2020-11-12 15:38 | Outpatient (CLI) | payer MEDICARE ==
[2020-03-28 03:05] VITALS: BMI 24.6
[2020-11-12 17:11] LABS: ALBUMIN 3.9 g/dL (3.4-5.0); ALKALINE PHOSPHATASE 206 U/L (30-120); ALT (SGPT) 76 U/L (10-68); BILIRUBIN - TOTAL 0.28 mg/dL (0.2-1.3); CALC OSMOLALITY 281 mosm/kg (275-300); CALCIUM 9.4 mg/dL (8.5-10.1); CARBON DIOXIDE 28.3 mmol/L (21.0-32.0); CHLORIDE - SERUM 100 mmol/L (98-107); GLUCOSE 81 mg/dL (74-106); POTASSIUM - SERUM 4.2 mmol/L (3.5-5.1); PROTEIN - SERUM 7.6 g/dL (6.4-8.2); SODIUM 140 mmol/L (136-145); UREA NITROGEN 23 mg/dL (7-18); eGFR NON AFRICAN AMERICAN 80 mL/min (90-120)
== END | disposition home or self-care (01) ==
LOC: D.LABREF 15:38
PROVIDERS: ATTEND Nurse Practitioner Acute Care
DX: K70.30 Alcoholic cirrhosis of liver without ascites (principal)